=== PATIENT | female | born 1965 | race Caucasian/White ===

== ENCOUNTER 2022-04-28 17:45 | Emergency (ER) | payer OTHER ==
[2022-04-28] MEDS ORDERED: Sodium Chloride 0.9% 10 ML Syringe FLUSH PRN (18:28)
[2022-04-28] MEDS ORDERED: Sodium Chloride 0.9% 75 ML IV SCH (19:15)
[2022-04-28] MEDS ORDERED: Iopamidol 612 MG/ML 100 ML Bottle IV SCH (19:15)
[2022-04-28 20:07] LABS: ESTIMATED GFR 65 mL/min (>60)
[2022-04-28] MEDS ORDERED: HYDROmorphone 0.5 MG/0.5 ML Syringe IVPUSH ONE (21:36)
== END 2022-04-28 23:26 | disposition home or self-care (01) ==
LOC: JP.ED 17:45
DX: S76.312A Strain of muscle, fascia and tendon of the posterior muscle group at thigh level, left thigh, initial encounter (principal); S70.12XA Contusion of left thigh, initial encounter; Z88.8 Allergy status to other drugs, medicaments and biological substances; Z79.82 Long term (current) use of aspirin; Z79.899 Other long term (current) drug therapy; Z20.822 Contact with and (suspected) exposure to COVID-19; W01.0XXA Fall on same level from slipping, tripping and stumbling without subsequent striking against object, initial encounter; Y92.009 Unspecified place in unspecified non-institutional (private) residence as the place of occurrence of the external cause
CPT/HCPCS: 36415; 73702; 80053; 85025; 85610; 85730; 87635; 96374; 99284; J1170; J3490; Q9967; U0002

== ENCOUNTER 2022-12-06 07:11 | Day surgery (SDC) | payer OTHER ==
[2022-12-06] MEDS ORDERED: Midazolam 1 MG/ML 2 ML SDV ONE (07:25)
[2022-12-06] MEDS ORDERED: Propofol 200 MG/20 ML SDV ONE (07:25)
[2022-12-06] MEDS ORDERED: fentaNYL 50 MCG/ML SDV ONE (07:25)
[2022-12-06] MEDS ORDERED: Sodium Chloride 0.9% 1,000 ML IV SCH (08:45)
== END 2022-12-06 10:00 | disposition home or self-care (01) ==
LOC: JP.SDS 07:11
PROVIDERS: ATTEND Surgery
DX: Z12.11 Encounter for screening for malignant neoplasm of colon (principal); I10 Essential (primary) hypertension; E78.5 Hyperlipidemia, unspecified; E21.3 Hyperparathyroidism, unspecified; E11.9 Type 2 diabetes mellitus without complications; Z79.899 Other long term (current) drug therapy; Z86.010 Personal history of colon polyps; Z88.6 Allergy status to analgesic agent; Z88.1 Allergy status to other antibiotic agents
CPT/HCPCS: 45378; J2250; J2704; J3010; J7030